=== PATIENT | female | born 1970 | race Caucasian/White ===

== ENCOUNTER 2016-09-17 19:34 | Emergency (ER) | payer OTHER ==
--- NOTE | 2016-09-17 19:40 | EDPHY ---
H & P Time Seen by Provider: 09/17/16 19:35 HPI/ROS: CHIEF COMPLAINT: Intoxication HISTORY OF PRESENT ILLNESS: Patient is a 46-year-old female who was taken [facility] the [facility] by her children. When she got the however she was unstable to ambulate and paramedics were called to bring her here. Patient has no complaints. No signs of injury. She did not fall. She has a history of alcoholism. She denies any medical history medications. She denies congested. REVIEW OF SYSTEMS: unable to obtain secondary to condition Physical Exam General Appearance: WD/WN, no apparent distress, obtunded (But arousable with painful stimulation) EENT: PERRL/EOMI, normal ENT inspection, TMs normal, pharynx normal Neck: non-tender, full range of motion, supple, normal inspection Respiratory: chest non-tender, lungs clear, normal breath sounds Cardiac/Chest: normal peripheral pulses, regular rate, rhythm, P Peripheral Pulses: 2+: carotid (R), carotid (L), femoral (R), femoral (L), dorsalis-pedis (R), dorsalis-pedis (L) Abdomen: normal bowel sounds, non-tender, soft Extremities: normal range of motion, non-tender, normal inspection, normal capillary refill Neurological: calm, compensation consultant II-XII NML as tested. No: alert (Somnolent) Appearance: appropriate appearance, appropriate insight, neat, denies illness Behavior/Eye Contact/Speech: cooperative, decreased rate of speech Thoughts/Hallucinations: normal thought pattern, no apparent hallucination Skin: normal color, warm/dry Source: Patient, EMS Exam Limitations: Intoxication - Medical/Surgical History Hx Asthma: No Hx Chronic Respiratory Disease: No Hx Diabetes: No Hx Cardiac Disease: No Hx Renal Disease: No Hx Cirrhosis: No Hx Alcoholism: Yes - Family History Significant Family History: No pertinent family hx - Social History Smoking Status: Former smoker Alcohol Use: Heavy Drug Use: Marijuana Constitutional: Initial Vital Signs Temperature (C) 36.2 C 09/17/16 19:35 Heart Rate 113 H 09/17/16 19:35 Respiratory Rate 20 09/17/16 19:35 Blood Pressure 127/102 H 09/17/16 19:35 O2 Sat (%) 94 09/17/16 19:35 O2 Delivery Mode Room Air Allergies/Adverse Reactions: No Known Allergies Allergy (Unverified 09/17/16 19:43) Home Medications: Medication Instructions Recorded NK [No Known Home Meds] 09/17/16 Medical Decision Making ED Course/Re-evaluation: 10:00 p.m. the patient is ambulating without difficulty. She does not show signs of withdrawal. We will transfer her back to the alcohol recovery Center. She is answering questions appropriately. Differential Diagnosis: Partial list of the Differential diagnosis considered include but were not limited to; intoxication, polysubstance abuse, and although unlikely based on the history and physical exam, I also considered infection, head injury, withdrawal. I discussed these differential diagnoses and the plan with the patient as well as the usual and expected course. The patient understands that the diagnosis is provisional and that in medicine we are not always correct and that further workup is often warranted. Usual and customary warnings were given. All of the patient's questions were answered. The patient was instructed to return to the emergency department should the symptoms at all worsen or return, otherwise to followup with the physician as we discussed. - Data Points Medications Given: Discontinued Medications Chlordiazepoxide (Librium 25 Mg Prepack#6) 1 btl TAKEHOME EDNOW ONE Stop: 09/17/16 22:06 Last Admin: 09/17/16 22:33 Dose: 1 btl Departure - Departure Disposition: Home, Routine, Self-Care Clinical Impression: Alcoholic intoxication Qualifiers: Complication of substance-induced condition: with unspecified complication Qualified Code(s): F10.129 - Alcohol abuse with intoxication, unspecified Condition: Fair Instructions: Alcohol Intoxication (ED) Referrals: Guy Guillory MD [Medical Doctor] - As per Instructions
[2016-09-17] MEDS ORDERED: CHLORDIAZEPOXIDE 25MG PREPK#6 BTL TAKEHOME ONE (22:05)
[2016-09-17 22:36] VITALS: BP 118/66; PULSE 75; RESP 18; TEMP 97.9; O2SAT 96
== END 2016-09-17 22:34 | disposition home or self-care (01) ==
LOC: EDBD → EDUNIT#
DX: F10.129 Alcohol abuse with intoxication, unspecified (principal); Z87.891 Personal history of nicotine dependence